=== PATIENT | male | born 1990 | race Caucasian/White ===

== ENCOUNTER 2017-04-20 10:51 | Emergency (ER) | payer BC ==
[~2017-04-20] VITALS: Ht 177.8 cm; Wt 84.8 kg
[2017-04-20 10:51] VITALS: BP 118/71
== END 2017-04-20 12:46 | disposition home or self-care (01) ==
LOC: ER 11:00
DX: M25.512 Pain in left shoulder (principal); V29.9XXA Motorcycle rider (driver) (passenger) injured in unspecified traffic accident, initial encounter; Y93.55 Activity, bike riding; Y92.89 Other specified places as the place of occurrence of the external cause; Y99.8 Other external cause status
CPT/HCPCS: 73030; 99284; A4606; Z7610

== ENCOUNTER 2017-09-20 19:25 | Emergency (ER) | payer BC ==
[~2017-09-20] VITALS: Ht 182.9 cm; Wt 86.2 kg
[2017-09-20 19:47] VITALS: BP 146/79
[2017-09-20] MEDS ORDERED: AZITHROMYCIN 250 MG TABLET PO ONE (20:30)
[2017-09-20] MEDS ORDERED: CEFTRIAXONE 500 MG VIAL IM ONE (20:30)
[2017-09-20] MEDS ORDERED: LIDOCAINE /MPF 1% VIAL 5 ML VIAL ONE (20:32)
[2017-09-20] MEDS ORDERED: AZITHROMYCIN 250 MG TABLET ONE (20:32)
[2017-09-20] MEDS ORDERED: CEFTRIAXONE 500 MG VIAL ONE (20:32)
[2017-09-20 21:16] LABS: APPEARANCE,URINE CLEAR (CLEAR); BILIRUBIN,URINE NEGATIVE (NEGATIVE); BLOOD, URINE 1+ Ery/uL (NEGATIVE); COLOR,URINE YELLOW (YELLOW); KETONES,URINE NEGATIVE (NEGATIVE); LEUKOCYTE ESTERASE ,URINE NEGATIVE (NEGATIVE); NITRITE, URINE NEGATIVE (NEGATIVE); PROTEIN,URINE NEGATIVE (NEGATIVE); UGLUCOSE NEGATIVE (NEGATIVE); UROBILINOGEN,URINE 0.2 EU/dL (0.2)
[2017-09-20 21:30] LABS: BACTERIA,URINE Rare /HPF (None Seen); SQUAMOUS EPITHELIAL CELL,UR Rare /HPF (None Seen)
== END 2017-09-20 20:49 | disposition home or self-care (01) ==
LOC: ER 19:31
DX: A64 Unspecified sexually transmitted disease (principal)
CPT/HCPCS: 81000-TC; 87086-TC; 87491; 87591; A4606; J0696; J3490; Z7610

== ENCOUNTER 2017-10-11 20:56 | Emergency (ER) | payer BC ==
[~2017-10-11] VITALS: Ht 165.1 cm; Wt 74.8 kg
--- NOTE | 2017-10-11 21:38 | NUR ---
PT BB SELF FROM HOME C/O "MY RECTUM AND STOMACH HAVE BEEN HURTING FOR ONE WEEK". PT STATES TO HAVING CHLAMYDIA 1 WEEK AGO AND BELIEVES "IT MIGHT BE FROM MY CHAMYDIA". PT IS AAOX4. RESP EVEN AND UNLABORED. SKIN WNL. VSS. NO S/S OF ACUTE DISTRESS NOTED. PT PLACED ON MONITOR AND POX. CALL LIGHT WITHIN REACH. PT SAFETY MEASURES IN PLACE.
[2017-10-11] MEDS ORDERED: HYDROCODONE/APAP 5/325MG 1 EACH TABLET ONE (22:12)
[2017-10-11 22:17] LABS: APPEARANCE,URINE CLEAR (CLEAR); BILIRUBIN,URINE NEGATIVE (NEGATIVE); BLOOD, URINE TRACE-INTA Ery/uL (NEGATIVE); COLOR,URINE YELLOW (YELLOW); KETONES,URINE NEGATIVE (NEGATIVE); LEUKOCYTE ESTERASE ,URINE NEGATIVE (NEGATIVE); NITRITE, URINE NEGATIVE (NEGATIVE); PH,URINE 5.5 (5.0-8.0); PROTEIN,URINE NEGATIVE (NEGATIVE); UGLUCOSE NEGATIVE (NEGATIVE); UROBILINOGEN,URINE 0.2 EU/dL (0.2)
[2017-10-11] MEDS ORDERED: HYDROCODONE/APAP 5/325MG 1 EACH TABLET PO ONE (22:30)
[2017-10-11 22:33] LABS: BASOPHILS # (AUTO) 0.1 /CMM (0.0-0.2); BASOPHILS % (AUTO) 0.6 % (0.0-2.0); EOSINOPHILS % (AUTO) 2.3 % (0.0-6.0); HEMATOCRIT 46 % (39-51); HEMOGLOBIN 15.5 g/dL (13.5-17.5); LYMPHOCYTES # (AUTO) 2.6 /CMM (0.8-4.8); LYMPHOCYTES % (AUTO) 26.4 % (20.0-44.0); MEAN CORPUSCULAR HGB CONC 34 g/dl (31.0-36.0); MEAN CORPUSCULAR VOLUME 88 fL (80-96); MONOCYTES # (AUTO) 0.8 /CMM (0.1-1.30); MONOCYTES % (AUTO) 7.7 % (2.0-12.0); NEUTROPHILS # (AUTO) 6.2 /CMM (1.8-8.9); PLATELET COUNT (AUTO) 167 /CMM (150-450); RDW COEFFICIENT OF VARIATION 12.9 (11.5-15.0); RED BLOOD CELL COUNT(AUTO) 5.19 MIL/uL (4.5-6.0); WHITE BLOOD COUNT (AUTO) 9.9 K/uL (4.3-11.0)
[2017-10-11 22:51] LABS: BACTERIA,URINE None seen /HPF (None Seen); WBC,URINE 0-2 /HPF (0-3)
[2017-10-11 22:52] LABS: RBC,URINE 0-2 /HPF (0-2)
[2017-10-11 22:53] LABS: SQUAMOUS EPITHELIAL CELL,UR Few /HPF (None Seen)
[2017-10-11 22:54] LABS: CREATININE 1.1 mg/dL (0.6-1.3); POTASSIUM 4.3 mmol/L (3.5-5.1)
[2017-10-11 22:59] LABS: ALBUMIN 3.9 g/dL (3.4-5.0); BILIRUBIN,TOTAL 0.5 mg/dL (0.2-1.0); TOTAL PROTEIN, SERUM 7.2 g/dL (6.4-8.2)
[2017-10-11 23:58] VITALS: BP 115/67
--- NOTE | 2017-10-11 23:58 | NUR ---
Patient discharged to home in stable condition. Written and verbal after care instructions given. Patient verbalizes understanding of instruction. VSS UPON DISCHARGE
== END 2017-10-11 23:59 | disposition home or self-care (01) ==
LOC: ER 20:57
DX: R10.84 Generalized abdominal pain (principal); F17.200 Nicotine dependence, unspecified, uncomplicated
CPT/HCPCS: 36415; 80053-TC; 81000-TC; 83690-TC; 85025-TC; A4606; Z7610